=== PATIENT | female | born 1980 | race Caucasian/White ===

== ENCOUNTER 2018-01-12 21:05 | Emergency (ER) | payer BC ==
[~2018-01-12] VITALS: Ht 167.6 cm; Wt 78.1 kg
[2018-01-12 21:19] VITALS: BP 131/97
[2018-01-13 02:28] LABS: APPEARANCE,URINE HAZY (CLEAR); BILIRUBIN,URINE NEGATIVE (NEGATIVE); BLOOD, URINE 2+ (NEGATIVE); COLOR,URINE YELLOW (YELLOW); LEUKOCYTE ESTERASE ,URINE NEGATIVE (NEGATIVE); NITRITE, URINE NEGATIVE (NEGATIVE); UGLUCOSE NEGATIVE (NEGATIVE)
[2018-01-13 02:32] LABS: ANION GAP 13.9 (8-16); CARBON DIOXIDE 26.8 mmol/L (21-32); POTASSIUM 3.7 mmol/L (3.5-5.1)
[2018-01-13 02:33] LABS: PROTHROMBIN TIME 9.4 secs (10.8-13.4)
[2018-01-13 02:39] LABS: ALBUMIN 4.3 g/dL (3.4-5.0); TOTAL BILIRUBIN 0.3 mg/dL (0.0-1.0)
[2018-01-13 02:43] LABS: RBC,URINE 3-10 (FEW) /HPF (0-5)
[2018-01-13 02:59] LABS: BASOPHILS % (AUTO) 0.6 % (0.0-2.0); EOSINOPHILS # (AUTO) 0.1 K/uL (0-0.4); EOSINOPHILS % (AUTO) 1.5 % (0.0-4.0); HEMATOCRIT 42.4 % (36-48); HEMOGLOBIN 14.2 g/dL (12.0-16.0); LYMPHOCYTES # (AUTO) 1.9 K/uL (2.5-16.5); LYMPHOCYTES % (AUTO) 31.6 % (20.5-51.1); MEAN CORPUSCULAR HEMOGLOBIN 32 pg (27-31); MEAN CORPUSCULAR HGB CONC 33 g/dL (33-37); MEAN CORPUSCULAR VOLUME 94.4 fL (80-94); MONOCYTES # (AUTO) 0.5 K/uL (0.8-1.0); MONOCYTES % (AUTO) 9.1 % (1.7-9.3); NEUTROPHILS # (AUTO) 3.4 K/uL (1.8-7.7); NEUTROPHILS % (AUTO) 57.2 % (42.2-75.2); PLATELET COUNT (AUTO) 243 K/uL (140-450); RED CELL DISTRIBUTION WIDTH 12.9 % (11.6-13.7)
[2018-01-13 03:03] LABS: WHITE BLOOD COUNT (AUTO) 5.9 K/uL (4.8-10.8)
[2018-01-13 03:45] VITALS: BP 128/86
== END 2018-01-13 03:45 | disposition home or self-care (01) ==
LOC: MED 21:05
DX: R10.2 Pelvic and perineal pain (principal); Z98.890 Other specified postprocedural states
CPT/HCPCS: 36415; 76700; 76856; 80053; 81001; 81025; 83690; 84703; 85025; 85610; 87086; 87186; 99285; Q0092

== ENCOUNTER 2020-08-22 12:56 | Emergency (ER) | payer BC ==
[~2020-08-22] VITALS: Ht 167.6 cm; Wt 66.8 kg
[2020-08-22 13:09] VITALS: BP 170/77
--- NOTE | 2020-08-22 13:09 | NUR ---
PT TAKEN TO BED 11.
--- NOTE | 2020-08-22 13:12 | NUR ---
40 y/o female c/o chest pain 03/26 describes as pressure-like to subternal area X1day. Pt states she has had increased stress and upset lately, mother in June from COVID +. Pt denies N/V, denies fever/chills/SOB. Denies PMH NKA
--- NOTE | 2020-08-22 13:17 | NUR ---
WHITNEY David at pt bedside.
[2020-08-22] MEDS ORDERED: LORazepam 0.5 MG TAB PO ONE (13:25)
[2020-08-22] MEDS ORDERED: KETOROLAC 30 MG/ML VIAL IM ONE (13:25)
--- NOTE | 2020-08-22 13:30 | NUR ---
pt ambulated to restroom with steady gait for urine collection
--- NOTE | 2020-08-22 13:41 | NUR ---
remote sensing technologist at pt bedside.
--- NOTE | 2020-08-22 14:15 | NUR ---
Patient discharged with v/s stable. Written and verbal after care instructions given and explained. Patient alert, oriented and verbalized understanding of instructions. Ambulatory with steady gait. All questions addressed prior to discharge. ID band removed. Patient advised to follow up with PMD. Rx of hydroxyzine hydrochloride 25mg tab PO BID PRN anxiety and naprosyn 500mg tab BID PO PRN pain given. Patient educated on indication of medication including possible reaction and side effects. Opportunity to ask questions provided and answered.
[2020-08-22 14:16] VITALS: BP 170/77
== END 2020-08-22 14:15 | disposition home or self-care (01) ==
LOC: MED 12:56 → MERGE 12:56 → MED 14:15
DX: F41.9 Anxiety disorder, unspecified (principal); Z88.8 Allergy status to other drugs, medicaments and biological substances
CPT/HCPCS: 71045; 81002; 81025; 93005; 96372; 99283; J1885

== ENCOUNTER 2020-12-22 16:02 | Emergency (ER) | payer BC ==
[~2020-12-22] VITALS: Ht 167.6 cm; Wt 69.2 kg
[2020-12-22 16:05] VITALS: BP 107/60
[2020-12-22 16:15] VITALS: BP 107/60
[2020-12-22] MEDS ORDERED: NACL 0.9% 1,000 ML IV ONE (16:55)
[2020-12-22 17:10] LABS: BASOPHILS # (AUTO) 0.2 K/uL (0.00-0.22); EOSINOPHILS # (AUTO) 0.1 K/uL (0-0.4); EOSINOPHILS % (AUTO) 1.2 % (0.0-4.0); HEMATOCRIT 40.6 % (36-48); HEMOGLOBIN 13.8 g/dL (12.0-16.0); LYMPHOCYTES # (AUTO) 1.2 K/uL (2.5-16.5); MEAN CORPUSCULAR HEMOGLOBIN 32 pg (27-31); MEAN CORPUSCULAR HGB CONC 34 g/dL (33-37); MONOCYTES # (AUTO) 0.4 K/uL (0.8-1.0); MONOCYTES % (AUTO) 7.2 % (1.7-9.3); NEUTROPHILS # (AUTO) 3.7 K/uL (1.8-7.7); NEUTROPHILS % (AUTO) 67.6 % (42.2-75.2); PLATELET COUNT (AUTO) 212 K/uL (140-450); RED BLOOD CELL COUNT(AUTO) 4.28 MIL/uL (4.20-5.40); RED CELL DISTRIBUTION WIDTH 13.2 % (11.6-13.7); WHITE BLOOD COUNT (AUTO) 5.5 K/uL (4.8-10.8)
[2020-12-22 17:22] LABS: PROTHROMBIN TIME 9.4 secs (10.8-13.4)
[2020-12-22] MEDS ORDERED: HYDROXYZINE HYDROCHLORIDE 25 MG TAB PO SCH (18:30)
[2020-12-22] MEDS ORDERED: ATA25 PO (18:31)
[2020-12-22 18:38] LABS: BILIRUBIN,URINE NEGATIVE (NEGATIVE); BLOOD, URINE TRACE-L (NEGATIVE); LEUKOCYTE ESTERASE ,URINE NEGATIVE (NEGATIVE); NITRITE, URINE NEGATIVE (NEGATIVE); UGLUCOSE NEGATIVE (NEGATIVE)
[2020-12-22 18:41] LABS: APPEARANCE,URINE HAZY (CLEAR); COLOR,URINE STRAW (YELLOW)
[2020-12-22 18:50] LABS: RBC,URINE 0-5 /HPF (0-5); WBC,URINE NONE SEEN /HPF (0-5)
== END 2020-12-22 19:00 | disposition home or self-care (01) ==
LOC: MED 16:02
DX: F41.9 Anxiety disorder, unspecified (principal); N93.9 Abnormal uterine and vaginal bleeding, unspecified; Z79.899 Other long term (current) drug therapy; Z88.8 Allergy status to other drugs, medicaments and biological substances
CPT/HCPCS: 36415; 71045; 81001; 81025; 84702; 85025; 85379; 85610; 85730; 87070; 87205; 87210; 96360; 99284; J7030; 87491

== ENCOUNTER 2021-04-14 18:44 | Emergency (ER) | payer BC ==
[~2021-04-14] VITALS: Ht 167.6 cm; Wt 72.1 kg
[~2021-04-14 18:44] MED LIST: ATA25 PO
[2021-04-14 19:23] VITALS: BP 119/47
--- NOTE | 2021-04-14 19:34 | NUR ---
TO LOBBY FOLLOWING TRIAGE
--- NOTE | 2021-04-14 20:21 | NUR ---
patient ambulated to bed 5
[2021-04-14] MEDS ORDERED: KETOROLAC 60 MG/2 ML VIAL IM ONE (20:45)
--- NOTE | 2021-04-14 21:19 | NUR ---
ERMD at bedside for examination of patient
[2021-04-14] MEDS ORDERED: IBUP-2213 PO (21:31)
[2021-04-14 21:53] VITALS: BP 119/47
== END 2021-04-14 21:53 | disposition home or self-care (01) ==
LOC: MED 18:44
DX: M79.10 Myalgia, unspecified site (principal); Z88.8 Allergy status to other drugs, medicaments and biological substances; Z79.899 Other long term (current) drug therapy
CPT/HCPCS: 81002; 81025; 96372; 99283; J1885

== ENCOUNTER 2022-04-02 22:50 | Emergency (ER) | payer BC ==
[~2022-04-02] VITALS: Ht 167.6 cm; Wt 80.3 kg
[~2022-04-02 22:50] MED LIST changes: +IBUP-2213 PO
[2022-04-02 23:03] VITALS: BP 106/60
--- NOTE | 2022-04-02 23:11 | NUR ---
TO LOBBY FOLLOWING TRIAGE
--- NOTE | 2022-04-02 23:51 | NUR ---
Patient ambulated to bed 12
--- NOTE | 2022-04-02 23:52 | NUR ---
Blood for labwork drawn from right arm by car repair supervisor. Patient tolerated well.
[2022-04-03 00:11] LABS: BASOPHILS # (AUTO) 0.1 K/uL (0.00-0.22); BASOPHILS % (AUTO) 0.6 % (0.0-2.0); EOSINOPHILS # (AUTO) 0.1 K/uL (0-0.4); EOSINOPHILS % (AUTO) 1.3 % (0.0-4.0); HEMATOCRIT 38.8 % (36-48); LYMPHOCYTES # (AUTO) 1.7 K/uL (2.5-16.5); LYMPHOCYTES % (AUTO) 19.9 % (20.5-51.1); MEAN CORPUSCULAR HEMOGLOBIN 31 pg (27-31); MEAN CORPUSCULAR HGB CONC 34 g/dL (33-37); MEAN CORPUSCULAR VOLUME 93.4 fL (80-94); MONOCYTES # (AUTO) 0.7 K/uL (0.8-1.0); MONOCYTES % (AUTO) 8.2 % (1.7-9.3); PLATELET COUNT (AUTO) 260 K/uL (140-450); RED BLOOD CELL COUNT(AUTO) 4.15 MIL/uL (4.20-5.40); WHITE BLOOD COUNT (AUTO) 8.6 K/uL (4.8-10.8)
[2022-04-03 00:29] LABS: ALBUMIN 3.7 g/dL (3.4-5.0); ANION GAP 11.4 (8-16); CARBON DIOXIDE 26.9 mmol/L (21-32); CREATININE 0.9 mg/dL (0.6-1.3); POTASSIUM 4.3 mmol/L (3.5-5.1); TOTAL BILIRUBIN 0.2 mg/dL (0.0-1.0)
[2022-04-03 01:47] LABS: APPEARANCE,URINE CLEAR (CLEAR); BILIRUBIN,URINE NEGATIVE (NEGATIVE); BLOOD, URINE 1+ (NEGATIVE); COLOR,URINE YELLOW (YELLOW); LEUKOCYTE ESTERASE ,URINE NEGATIVE (NEGATIVE); NITRITE, URINE NEGATIVE (NEGATIVE); UGLUCOSE NEGATIVE (NEGATIVE)
--- NOTE | 2022-04-03 01:51 | NUR ---
Ultrasound at bedside.
[2022-04-03 01:59] LABS: WBC,URINE 0-5 /HPF (0-5)
--- NOTE | 2022-04-03 03:22 | NUR ---
Dr. Quiroga explained results and treatment plans.
[2022-04-03 03:29] VITALS: BP 106/60
--- NOTE | 2022-04-03 03:29 | NUR ---
Patient discharged with v/s stable. Written and verbal after care instructions given and explained. Patient verbalized understanding. Ambulatory with steady gait. All questions addressed prior to discharge. Advised to follow up with PMD.
== END 2022-04-03 03:29 | disposition home or self-care (01) ==
LOC: MED 22:50
DX: O20.0 Threatened abortion (principal); Z3A.08 8 weeks gestation of pregnancy; Z79.899 Other long term (current) drug therapy; Z79.1 Long term (current) use of non-steroidal anti-inflammatories (NSAID); Z88.8 Allergy status to other drugs, medicaments and biological substances
CPT/HCPCS: 36415; 76801; 80053; 81001; 84702; 85025; 86901; 99284; Q0092

== ENCOUNTER 2022-04-06 12:15 | Emergency (ER) | payer BC ==
[~2022-04-06] VITALS: Ht 167.6 cm; Wt 82.1 kg
[2022-04-06 12:52] VITALS: BP 116/51
--- NOTE | 2022-04-06 13:00 | NUR ---
BIB FAMILY C/O VAGINAL BLEEDING, 810 LOWER ABDOMINAL PAIN X TODAY. 7 WEEKS . LMP .
[2022-04-06] MEDS ORDERED: ACET-10509 PO (15:49)
[2022-04-06 16:25] VITALS: BP 116/51
== END 2022-04-06 16:25 | disposition home or self-care (01) ==
LOC: MED 12:15
DX: O20.0 Threatened abortion (principal); Z3A.01 Less than 8 weeks gestation of pregnancy; Z91.040 Latex allergy status
CPT/HCPCS: 36415; 81002; 81025; 84702; 99284